=== PATIENT | female | born 1935 | race Caucasian/White ===

== ENCOUNTER 2016-08-22 21:52 | Emergency (ER) | payer BC | END 2016-08-22 22:00 | disposition home or self-care (01) | LOC: ER 21:52 | DX: S06.0X9A Concussion with loss of consciousness of unspecified duration, initial encounter (principal); S60.512A Abrasion of left hand, initial encounter; F17.200 Nicotine dependence, unspecified, uncomplicated; Z88.1 Allergy status to other antibiotic agents; W19.XXXA Unspecified fall, initial encounter | CPT/HCPCS: 87070; 87205; 99285 ==